=== PATIENT | female | born 1980 | race Caucasian/White ===

== ENCOUNTER 2018-09-02 14:00 | Emergency (ER) | payer SELFPAY ==
[~2018-09-02] VITALS: Ht 160 cm; Wt 68.0 kg
--- NOTE | 2018-09-02 14:06 | Emergency Room Report ---
History of Present Illness General Chief Complaint: Alcohol Intoxication Source: Family Member Present Illness HPI Patient is a 38-year-old female brought in by EMS after increased altered mental status. Patient apparently had ingested large amount of vodka prior to arrival. Patient was not noted to have any other coingestions. Patient had some prior history of alcohol abuse. Patient was brought in by EMS from home. Allergies: Coded Allergies: No Known Allergies (Unverified , 09/02/18) Patient History Last Menstrual Period: unknown Reviewed Nursing Documentation: PMH: Agreed; PSxH: Agreed Nursing Documentation-PMH Past Medical History: No History, Except For History Of Psychiatric Problem: Yes - alcohol and substance abuse Review of Systems All Other Systems: negative except mentioned in HPI Physical Exam Vital Signs Date Time Temp Pulse Resp B/P (MAP) Pulse Ox O2 Delivery O2 Flow Rate FiO2 09/02/18 13:57 98.1 116 15 115/98 98 Room Air Sp02 EP Interpretation: reviewed, normal General Appearance: normal inspection, well appearing, no apparent distress, alert, other - slurred speech Head: atraumatic ENT: normal ENT inspection, hearing grossly normal, normal voice Neck: normal inspection, full range of motion, supple, no bony tend Respiratory: normal inspection, lungs clear, normal breath sounds, no respiratory distress, no retraction, no wheezing Cardiovascular #1: regular rate, rhythm, no edema Gastrointestinal: normal inspection, normal bowel sounds, non tender, soft, no guarding, no hernia Genitourinary: no CVA tenderness Musculoskeletal: normal inspection, back normal, normal range of motion Neurologic: normal inspection, alert, oriented x3, responsive, airplane rigger III-XII nml as tested, other - slurred speech, nystagmus Psychiatric: other - yelling Skin: normal inspection, normal color, no rash Medical Decision Making Diagnostic Impression: Primary Impression: Acute alcoholic intoxication Additional Impressions: Metabolic acidosis Alcohol abuse ER Course Patient presented for altered mental status. Differential diagnosis included but was not limited to alcohol intoxication,ischemic stroke, subarachnoid hemorrhage, hypoglycemia, spinal cord injury, neurodegenerative disorder, urinary tract infection, hypoxemia.Per EMS patient had ingested large amount of vodka. She was given medications due to agitation. Patient was noted to be markedly intoxicated. Laboratory testing showed some metabolic acidosis which improved with IV fluids. Patient was noted to be improving over time. Patient was endorsed to Dr. Marquez pending further sobering and repeat labs and will likely be discharged. Labs Test 09/02/18 15:00 09/02/18 16:00 09/02/18 23:10 Salicylates Level 1.2 ug/mL (2.8-20) Urine Opiates Screen Negative (NEGATIVE) Acetaminophen Level < 2 MCG/ML (10-30) Urine Barbiturates Screen Negative (NEGATIVE) Phencyclidine (PCP) Screen Negative (NEGATIVE) Urine Amphetamines Screen Negative (NEGATIVE) Urine Benzodiazepines Screen Negative (NEGATIVE) Urine Cocaine Screen Negative (NEGATIVE) Urine Marijuana (THC) Screen Negative (NEGATIVE) Serum Alcohol 349 mg/dL Lactic Acid Level 2.40 mmol/L (0.66-2.22) White Blood Count 12.5 K/UL (4.8-10.8) Red Blood Count 4.96 M/UL (4.20-5.40) Hemoglobin 12.2 G/DL (12.0-16.0) Hematocrit 38.8 % (37.0-47.0) Mean Corpuscular Volume 78 FL (80-99) Mean Corpuscular Hemoglobin 24.7 PG (27.0-31.0) Mean Corpuscular Hemoglobin Concent 31.5 G/DL (32.0-36.0) Red Cell Distribution Width 18.1 % (11.6-14.8) Platelet Count 380 K/UL (150-450) Mean Platelet Volume 6.5 FL (6.5-10.1) Neutrophils (%) (Auto) 81.2 % (45.0-75.0) Lymphocytes (%) (Auto) 13.4 % (20.0-45.0) Monocytes (%) (Auto) 4.7 % (1.0-10.0) Eosinophils (%) (Auto) 0.1 % (0.0-3.0) Basophils (%) (Auto) 0.5 % (0.0-2.0) Sodium Level 142 MMOL/L (136-145) Potassium Level 3.8 MMOL/L (3.5-5.1) Chloride Level 106 MMOL/L (98-107) Carbon Dioxide Level 22 MMOL/L (21-32) Anion Gap 14 mmol/L (5-15) Blood Urea Nitrogen 10 mg/dL (7-18) Creatinine 0.7 MG/DL (0.55-1.30) Estimat Glomerular Filtration Rate > 60 mL/min (>60) Glucose Level 109 MG/DL (74-106) Calcium Level 8.1 MG/DL (8.5-10.1) Total Bilirubin 0.2 MG/DL (0.2-1.0) Aspartate Amino Transf (AST/SGOT) 31 U/L (15-37) Alanine Aminotransferase (ALT/SGPT) 27 U/L (12-78) Alkaline Phosphatase 132 U/L (46-116) Total Protein 7.2 G/DL (6.4-8.2) Albumin 3.6 G/DL (3.4-5.0) Globulin 3.6 g/dL Albumin/Globulin Ratio 1.0 (1.0-2.7) Last Vital Signs Date Time Temp Pulse Resp B/P (MAP) Pulse Ox O2 Delivery O2 Flow Rate FiO2 09/02/18 13:57 98.1 116 15 115/98 98 Room Air Status: improved Disposition: HOME, SELF-CARE Condition: Stable Hussein Henderson MD Sep 02, 2018 14:06
[2018-09-02] MEDS ORDERED: Haloperidol 5mg/ml Inj IM ONE (14:15)
[2018-09-02] MEDS ORDERED: DiphenhydrAMINE 50mg/ml Inj IM ONE (14:15)
--- NOTE | 2018-09-02 15:20 | NUR ---
ED Nurse Note: Pt BIBA due to ETOH. Pt'sbrother called saying he found his sister in the bathroom with a bottle of vodka. Pt came into the ER restless and irratic. VSS.
[2018-09-02 15:21] VITALS: BP 110/97
[2018-09-02 15:32] LABS: BASOPHILS % (AUTO) 0.6 % (0.0-2.0); EOSINOPHILS % (AUTO) 0.3 % (0.0-3.0); HEMATOCRIT 40.6 % (37.0-47.0); HEMOGLOBIN 12.5 G/DL (12.0-16.0); LYMPHOCYTES % (AUTO) 11.2 % (20.0-45.0); MEAN CORPUSCULAR VOLUME 79 FL (80-99); MONOCYTES % (AUTO) 3.9 % (1.0-10.0); NEUTROPHILS % (AUTO) 84.1 % (45.0-75.0); PLATELET COUNT 397 K/UL (150-450); RED BLOOD COUNT 5.15 M/UL (4.20-5.40); RED CELL DISTRIBUTION WIDTH 18.4 % (11.6-14.8)
[2018-09-02 15:46] LABS: ANION GAP 17 mmol/L (5-15); BLOOD UREA NITROGEN 12 mg/dL (7-18); CALCIUM 7.7 MG/DL (8.5-10.1); CARBON DIOXIDE 20 MMOL/L (21-32); CHLORIDE 106 MMOL/L (98-107); CREATININE 0.7 MG/DL (0.55-1.30); POTASSIUM 3.7 MMOL/L (3.5-5.1); SODIUM 143 MMOL/L (136-145)
[2018-09-02 15:50] LABS: ALANINE AMINOTRANSFERASE 24 U/L (12-78); ALBUMIN 3.7 G/DL (3.4-5.0); ALKALINE PHOSPHATASE 128 U/L (46-116); ASPARTATE AMINO TRANSFERASE 30 U/L (15-37); BILIRUBIN,TOTAL 0.1 MG/DL (0.2-1.0)
[2018-09-02] MEDS: Dextrose 5%/Lactated Ringer's 1,000 ML IV SCH (16:55)
[2018-09-02 18:41] VITALS: BP 105/80
--- NOTE | 2018-09-02 19:02 | NUR ---
HAND-OFF: Report given to Antony Franklin RN.
[2018-09-02 22:35] VITALS: BP 120/82
--- NOTE | 2018-09-02 23:00 | NUR ---
ER Nurse Note: Pt on her period, changed linen. Pt does not complain of pain. Pt asleep, IV patent. Will continue to montior.
[2018-09-02 23:21] LABS: BASOPHILS % (AUTO) 0.5 % (0.0-2.0); EOSINOPHILS % (AUTO) 0.1 % (0.0-3.0); HEMATOCRIT 38.8 % (37.0-47.0); HEMOGLOBIN 12.2 G/DL (12.0-16.0); LYMPHOCYTES % (AUTO) 13.4 % (20.0-45.0); MEAN CORPUSCULAR VOLUME 78 FL (80-99); MONOCYTES % (AUTO) 4.7 % (1.0-10.0); NEUTROPHILS % (AUTO) 81.2 % (45.0-75.0); PLATELET COUNT 380 K/UL (150-450); RED BLOOD COUNT 4.96 M/UL (4.20-5.40); RED CELL DISTRIBUTION WIDTH 18.1 % (11.6-14.8); WHITE BLOOD COUNT 12.5 K/UL (4.8-10.8)
[2018-09-02 23:33] LABS: ANION GAP 14 mmol/L (5-15); BLOOD UREA NITROGEN 10 mg/dL (7-18); CALCIUM 8.1 MG/DL (8.5-10.1); CARBON DIOXIDE 22 MMOL/L (21-32); CHLORIDE 106 MMOL/L (98-107); CREATININE 0.7 MG/DL (0.55-1.30); POTASSIUM 3.8 MMOL/L (3.5-5.1); SODIUM 142 MMOL/L (136-145)
[2018-09-02 23:38] LABS: ALANINE AMINOTRANSFERASE 27 U/L (12-78); ALBUMIN 3.6 G/DL (3.4-5.0); ALKALINE PHOSPHATASE 132 U/L (46-116); ASPARTATE AMINO TRANSFERASE 31 U/L (15-37); BILIRUBIN,TOTAL 0.2 MG/DL (0.2-1.0)
[2018-09-03] MEDS: Dextrose 5%/Lactated Ringer's 1,000 ML IV SCH (01:15)
[2018-09-03 02:36] VITALS: BP 104/85
--- NOTE | 2018-09-03 03:00 | NUR ---
ER Nurse Note: Pt asleep, no signs of distress, VSS; calm. Will continue to montior.
[2018-09-03 06:25] VITALS: BP 118/78
[2018-09-03 06:30] VITALS: BP 118/78
--- NOTE | 2018-09-03 06:30 | NUR ---
ER Nurse Note: Pt seen, treated, medically cleared to discarge by ERMD. Discharge instructions given with repeat verbalization by pt. Instructed pt to follow up [facility] primary care physican within one week. Pt a&ox4, VSS, no signs of distress. ID band removed. IV discontinued; site clean and bandaged. Pt left with all belonging.
== END 2018-09-03 06:30 | disposition home or self-care (01) ==
LOC: EDBD 14:00 → EMR 14:30
DX: F10.129 Alcohol abuse with intoxication, unspecified (principal)
CPT/HCPCS: 36415; 80053; 80307; 83605; 85025; 96365; 96366; 96372; 99284; G0480; J1200; J1630; 80329